=== PATIENT | female | born 1980 | race African-American/Black ===

== ENCOUNTER 2016-05-30 08:28 | Day surgery (SDC) | payer OTHER ==
[2016-05-26 15:19] VITALS: BMI 26.2
[2016-05-30 12:51] VITALS: TEMP 97.7
[2016-05-30 12:54] VITALS: BP 127/68; PULSE 72
--- NOTE | 2016-05-31 12:57 | PATH ---
Surgical Pathology Report Patient Name: JAVIER WAKEFIELD [facility]. Rec. #: [id number] /Age/Gender: 1980 (Age: 35) / F Account: [id number] Location: RADIOLOGY Taken: 05/30/2016 Received: 05/30/2016 Reported: 05/31/2016 Physicians: Chai Martinez M.D. Karthik Rayo M.D. Specimen(s) Received RIGHT SUPRACLAVICULAR LYMPH NODE BX Clinical History 35 year old female with enlarged right supraclavicular lymph nodes Rule out lymphoma versus metastases versus inflammatory/infection process Final Diagnosis LYMPH NODE, RIGHT SUPRACLAVICULAR, US GUIDED CORE BIOPSY: NON-NECROTIZING GRANULOMATOUS INFLAMMATION (SEE COMMENT). Comment: Non-necrotizing granulomas may be seen as a result of systemic granulomatous disease, such as sarcoid, infections and autoimmune diseases. Clinical and serological correlations are suggested. Special stains for acid-fast and fungal organisms are pending; results will be reported in an addendum. Electronically Signed Cal Tolliver M.D. Addendum Reported: 06/01/2016 Addendum Diagnosis No acid fast bacilli are identified with AFB stain. No fungal organisms are identified with GMS stain. Cal Tolliver M.D. Addendum Reported: 06/01/2016 Addendum Diagnosis FLOW CYTOMETRY PERFORMED AND INTERPRETED ON THE CONCURRENT SPECIMEN AT [place], [place] ([id number]) SHOWED THE FOLLOWING: INTERPRETATION: In the sample analyzed there is no detectable B or T-cell non-Hodgkin's lymphoma. Phenotype: There is a mixed, mature B and T lymphocytes populations. B cells (41% of total) are polytypic. The gerber cells (52% of total) show no [place] T-cell antigenic deletion. The touch imprint contains heterogeneous lymphoid population. Histiocytes are also identified. Cal Tolliver M.D. Gross Description Received in formalin, labeled "right lymph" are 2 albrecht, cylindrical portions of soft tissue averaging 1.6 cm in length and 0.1 cm in diameter. The specimens are submitted in toto in one cassette. There is additional tissue received in RPMI solution which is sent for flow cytometry. /05/30/201605/30/2016
== END 2016-05-30 12:45 | disposition home or self-care (01) ==
LOC: JRADIR 08:28
PROVIDERS: ATTEND Internal Medicine Hematology & Oncology
PROC: BW4FZZZ Ultrasonography of Neck (ICD-10-PCS; principal; 2016-05-30)
PROC: 07B13ZX Excision of Right Neck Lymphatic, Percutaneous Approach, Diagnostic (ICD-10-PCS; 2016-05-30)
DX: I88.8 Other nonspecific lymphadenitis (principal)
CPT/HCPCS: 76942-TC; 84703; 87899; 88305-TC; 88312-TC

== ENCOUNTER 2016-09-17 15:23 | Emergency (ER) | payer OTHER ==
[2016-09-17 15:29] VITALS: TEMP 98.1; BMI 26.6
--- NOTE | 2016-09-17 16:12 | PDOC ---
History of Present Illness - General History Source: Patient - History of Present Illness Timing/Duration: reports: intermittent <Louis Nolan - Last Filed: 09/17/16 18:51> <Maddi Guevara - Last Filed: 09/18/16 11:11> - General Chief Complaint: Pain Stated Complaint: 7 WKS PRG/ECTOPIC Time Seen by Provider: 09/17/16 15:56 Past History - Past Medical History Anemia: No Asthma: No Cancer: No Cardiac Disorders: No CVA: No COPD: No CHF: No Dementia: No Diabetes: No GI Disorders: No Disorders: No HTN: No Hypercholesterolemia: No Liver Disease: No Seizures: No Thyroid Disease: No - Surgical History Abdominal Surgery: No Appendectomy: No Cardiac Surgery: No Cholecystectomy: No Lung Surgery: No Neurologic Surgery: No Orthopedic Surgery: No - Psycho/Social/Smoking Cessation Hx Anxiety: No Suicidal Ideation: No Smoking Status: No Smoking History: Never smoked Have you smoked in the past 12 months: No Number of Cigarettes Smoked Daily: 0 Hx Alcohol Use: No Drug/Substance Use Hx: No Substance Use Type: None Hx Substance Use Treatment: No <Louis Nolan - Last Filed: 09/17/16 18:51> <Maddi Guevara - Last Filed: 09/18/16 11:11> - Past Medical History Allergies/Adverse Reactions: Allergies Allergy/AdvReac Type Severity Reaction Status Date / Time No Known Drug Allergies Allergy Verified 09/17/16 15:29 Home Medications: Ambulatory Orders Acetaminophen [Tylenol] 650 mg PO ASDIR PRN 08/18/16 Ferrous Sulfate 325 mg PO DAILY 08/18/16 Abd/GI Specific PMHX - Complaint Specific PMHX Colitis: No Diverticulitis: No Gall Bladder Disease: No GERD: No Hepatitis: No Irritable Bowel Synd (IBS): No Pancreatitis: No GI Ulcer Disease: No <Louis Nolan Last Filed: 09/17/16 18:51> Review of Systems - Review of Systems Constitutional: No: Chills, Fever ABD/GI: Yes: Abdominal cramping. No: Nausea, Vomiting : No: Dysuria <Louis Nolan Last Filed: 09/17/16 18:51> *Physical Exam - Vital Signs Last Vital Signs Temp Pulse Resp BP Pulse Ox 98.1 F 91 H 20 119/77 99 09/17/16 15:26 09/17/16 15:26 09/17/16 15:26 09/17/16 15:26 09/17/16 15:26 - Physical Exam General Appearance: Yes: Appropriately Dressed. No: Apparent Distress HEENT: positive: Normal Voice Neck: positive: Supple Respiratory/Chest: negative: Respiratory Distress Female Pelvic Exam: positive: normal external exam, discharge (small amount light yellow discharge). negative: normal adnexa, CMT, vaginal bleeding Gastrointestinal/Abdominal: positive: Tender (to R suprapubic area), Soft Extremity: positive: Normal Inspection Integumentary: positive: Dry, Warm Neurologic: positive: Fully Oriented, Alert, Normal Mood/Affect <Louis Nolan - Last Filed: 09/17/16 18:51> - Vital Signs Last Vital Signs Temp Pulse Resp BP Pulse Ox 98.1 F 80 18 120/77 99 09/17/16 15:26 09/17/16 17:30 09/17/16 17:30 09/17/16 17:30 09/17/16 17:30 <Maddi Guevara - Last Filed: 09/18/16 11:11> ED Treatment Course - LABORATORY CBC & Chemistry Diagram: 09/17/16 16:08 09/17/16 16:08 - RADIOLOGY Radiology Studies Ordered: Category Date Time Status TRANSVAGINAL ULTRASOUND US [US] Stat Ultrasound 09/17/16 15:57 Ordered <Louis Nolan - Last Filed: 09/17/16 18:51> - LABORATORY CBC & Chemistry Diagram: 09/17/16 16:08 09/17/16 16:08 - ADDITIONAL ORDERS Additional order review: 09/17/16 16:08 RBC 4.04 MCV 94.1 MCHC 33.3 RDW 14.8 MPV 7.8 Neutrophils % 65.6 Lymphocytes % 25.6 Monocytes % 7.3 Eosinophils % 1.0 Basophils % 0.5 <Maddi Guevara - Last Filed: 09/18/16 11:11> Medical Decision Making - Medical Decision Making 09/17/16 16:08 35 yo F, (6 elec ABs), ~7 weeks by dates, dx w/ R ectopic on US today at [facility] after presenting to facility for termination of current . States she has been having some vague pelvic pain x several weeks, no vag bleeding, n/v/f/c or dysuria See exam Ectopic on outside US today Stable w/ + R pelvic pain, no vag bleed -pre-op labs -US -wellness program manager c/s 09/17/16 16:25 09/17/16 18:52 Intrauterine ges sac w/ pole ~6 weeks w/ FHR in lower uterine segment and ?2nd adjacent pole per radiology, no yolk sac seen, +R ovarian cyst, no adnexal masses. Pt informed. States US done at [facility] was done by practitioner at bedside and was not an official US. Pt given copy of report and will f/u with her OB 09/17/16 18:57 <Louis Nolan - Last Filed: 09/17/16 18:51> *DC/Admit/Observation/Transfer <Louis Nolan - Last Filed: 09/17/16 18:51> - Attestations Physician Attestion: I reviewed the case with the mid-level practitioner and agree with the mid- level practitioner's assessment, diagnosis and disposition. <Maddi Guevara - Last Filed: 09/18/16 11:11> Diagnosis at time of Disposition: Abdominal pain affecting - Discharge Dispostion Disposition: HOME Condition at time of disposition: Good - Referrals Referrals: Dave Hager MD [Primary Care Provider] - - Patient Instructions Additional Instructions: Your beta was >65,000 today w/ an intrauterine on ultrasound today. There was no evidence of an ectopic and you were given a report of the ultrasound. Please continue to follow up with your OB
[2016-09-17 16:16] LABS: BASOPHIL 0.5 % (0-2.0); MCH 31.4 pg (25.7-33.7); MCHC 33.3 g/dl (32.0-36.0); MEAN CELL VOLUME 94.1 fl (80-96); MEAN PLT VOLUME 7.8 fl (7.5-11.1); NEUTROPHILS 65.6 % (42.8-82.8); PLATELET COUNT 269 K/MM3 (134-434); RDW 14.8 % (11.6-15.6); WHITE BLOOD COUNT 5.8 K/mm3 (4.0-10.0)
[2016-09-17 16:31] LABS: URINE APPEARANCE CLEAR; URINE BILIRUBIN NEGATIVE (NEGATIVE); URINE BLOOD NEGATIVE (NEGATIVE); URINE COLOR YELLOW; URINE GLUCOSE (UA) NEGATIVE (NEGATIVE); URINE KETONE 2+ (NEGATIVE); URINE LEUK ESTERASE NEGATIVE (NEGATIVE); URINE NITRITE NEGATIVE (NEGATIVE); URINE PROTEIN NEGATIVE (NEGATIVE); URINE UROBILINOGEN NEGATIVE E.U./dl (0.2-1.0)
[2016-09-17 16:35] LABS: INR 1.09 (0.82-1.09)
[2016-09-17 16:48] LABS: ALBUMIN 3.8 g/dl (3.4-5.0); ANION GAP 9 (8-16); BILIRUBIN,TOTAL 0.9 mg/dL (0.2-1.0); CO2 26 mmol/L (21-32); CREATININE 0.7 mg/dL (0.55-1.02); GLUCOSE,RANDOM 74 mg/dL (74-106); SGOT/AST 24 U/L (15-37); SGPT/ALT 28 U/L (12-78); TOT PROT 7.6 g/dl (6.4-8.2)
[2016-09-17 17:03] LABS: ALK PHOS 66 U/L (45-117)
[2016-09-17 18:22] VITALS: BP 120/77; PULSE 80
== END 2016-09-17 19:01 | disposition home or self-care (01) ==
LOC: JER 15:23
DX: O26.891 Other specified pregnancy related conditions, first trimester (principal); R10.84 Generalized abdominal pain; O34.81 Maternal care for other abnormalities of pelvic organs, first trimester; N83.201 Unspecified ovarian cyst, right side; Z3A.01 Less than 8 weeks gestation of pregnancy
CPT/HCPCS: 36415; 76830-TC; 80053; 81003; 84702; 85025; 85610; 86850; 86900; 86901; 99285-25

== ENCOUNTER 2016-10-07 08:10 | Inpatient (IN) | payer OTHER ==
[2016-09-23 10:51] VITALS: BMI 26.6
--- NOTE | 2016-10-07 07:50 | HP ---
Satellite [facility] - Chief Complaint Chief Complaint: left hip pain - Past Medical History Allergies/Adverse Reactions: Allergies Allergy/AdvReac Type Severity Reaction Status Date / Time No Known Drug Allergies Allergy Verified 09/23/16 10:51 ...LMP: 08/03/16 - Current Medications Current Medications: Home Medications Medication Instructions Recorded Acetaminophen [Tylenol] 650 mg PO ASDIR PRN 08/18/16 Ferrous Sulfate 325 mg PO DAILY 08/18/16 Satellite Physical Exam - Physical Examination General Appearance: Well Nourished, Well Developed, Alert & Oriented x3 ENT: Clear Lung: Normal air movement Heart: Regular rate & rhythm Extremities: Other (left hip- + ttp, decr rom, nvi xrays show severe hip djd) Neurological: Intact, Alert, Oriented Satellite Impression/Plan - Impression/Plan Impression: left hip djd Operative Procedure: left carmelina thr Date to be Performed: 10/07/16
[~2016-10-07 08:10] MED LIST: CEFAZOLIN 1 GM/D5W 50 ML IVPB ONE; CELECOXIB 200 MG CAPSULE PO ONE; GABAPENTIN 300 MG CAPSULE (FP) PO ONE; TRANEXAMIC ACID 1000 MG/10 ML VIAL IVPUSH ONE; oxyCODONE HCL 10 MG SUSTAINED ACTING TABLET PO ONE
[2016-10-07] MEDS ORDERED: ceFAZolin SODIUM 1 GM VIAL IVPB ONE ×2 (10:30)
[2016-10-07] MEDS ORDERED: VANCOMYCIN 1 GRAM (PRE-DOCKED) 1,000 MG/250 ML BAG IVPB ONE (10:55)
[2016-10-07] MEDS ORDERED: MAGNESIUM HYDROX 2400MG/30ML ORAL SUSPENSION 30 ML CUP PO PRN (12:20)
[2016-10-07] MEDS ORDERED: ONDANSETRON 4 MG/2 ML VIAL IVPB PRN (12:20)
[2016-10-07] MEDS ORDERED: MAG HYDROX/AL HYDROX/SIMETH 30 ML UNIT-DOSE CUP PO PRN (12:20)
--- NOTE | 2016-10-07 12:23 | OP ---
Operative Note - Note: Operative Date: 10/07/16 (helen) Pre-Operative Diagnosis: left hip djd Operation: left carmelina thr Post-Operative Diagnosis: Same as Pre-op Surgeon: Juan Lynn Quality Process Auditor: Rohan Gupta Anesthesia: Spinal, Local Specimens Removed: femoral head Estimated Blood Loss (mls): 200 Operative Report Dictated: Yes
--- NOTE | 2016-10-07 12:24 | SPEC ---
DATE OF OPERATION: 10/07/2016 PREOPERATIVE DIAGNOSIS: Degenerative Joint Disease, Left Hip POSTOPERATIVE DIAGNOSIS: Degenerative Joint disease, Left Hip PROCEDURE: Left Total Hip Replacement with Robotic Arm Navigation Assistance (MAKOplasty). SURGEON: Dr. Juan Lynn. TOBACCO ACREAGE MEASURER: BRIELLE Trevino. ANESTHESIA: Spinal and regional. ANESTHESIOLOGIST: CLOSURE: [place] components with a No. 5 Accolade 2 stem, 0 ceramic 36-mm head, 48 PSL Press-Fit acetabulum, No. 1 Vicryl for capsule and fascia, 0 and 2-0 subcutaneous, 3-0 Monocryl subcuticular and skin glue for skin, 4-0 undyed Vicryl for pin sites. ESTIMATED BLOOD LOSS: Approximately 250 mL. COMPLICATIONS: None. CONDITION: To recovery room in stable condition. DESCRIPTION OF OPERATIVE PROCEDURE: The patient was taken to the operating room. Spinal anesthesia as well as sciatic block was administered by the anesthesiologist. The IV Kefzol and TXA were administered prophylactically prior to the case. The patient was placed in the lateral decubitus position with all prominences well-padded. An EKG pad was secured to the inferior pole of the patella for limb length calculations intraoperatively. The left hip area was prepped and draped in the usual sterile fashion. A 12.0-15.0 cm curved longitudinal incision over the posterolateral aspect of the greater trochanter was made. Hemostasis was achieved with Bovie cautery. Sharp dissection was carried down to the level of the fascia. The fascia was opened the entire length of the incision, spreading the gluteus viola fibers in the direction of their origin. A Charnley retractor was placed in this layer, and care was taken to be far away from the sciatic nerve. The short external rotators were detached off the insertion of the greater trochanter and peeled off the capsule. A posterior capsulectomy was then performed. A checkpoint was malleted into the greater trochanter. Three small stab incisions were done on the iliac crest. Through these stab incisions, threaded guide pins were drilled into the iliac crest. These pins were fastened to the Navigation array. The check point on the greater trochanter, and the EKG pad on the inferior pole of the patella were used to measure preoperative limb length and offset. The hip was then dislocated. The hip was osteotomized at the appropriate level as directed by the preoperative template. Anterior and posterior retractors were placed around the acetabulum. Circumferential labrum was excised. A checkpoint was malleted into the acetabulum superiorly. The acetabulum was then registered with the Navigation device with multiple sites within the acetabulum and around the rim of the acetabulum. I t was then confirmed popping the blue bubbles, confirming ideal position and confirmation of adequate registration with the Navigation device. Using a 48 reamer, which was decided preoperatively on the preoperative template, the robotic arm was brought into the field and was used to ream the acetabulum down to the appropriate depth with the appropriate orientation and inversion applied. After reaming, a good hemispherical bleeding surface was encountered in the acetabulum. A [place] shell of the appropriate size was then malleted into place achieving excellent fit. Confirmation of the appropriate orientation and inversion was confirmed using the probe, and assuring that the acetabular cup was placed in the ideal position as templated preoperatively. A real liner was then clipped into place with a 10 degree lip in the posterior-superior quadrant. Anterior and posterior osteophytes were removed using osteotome. Next, our attention was directed to the femur. The proximal femur was opened with a box chisel, rat-tail, anchovy and serial reamers. This was done until the appropriate reamer achieved good fit and fill of the proximal femur. A trial reduction with the appropriate neck and head, as again measured from our preoperative template, was performed. Limb lengths were confirmed both visually and using the Navigation device, again measuring the inferior pole of the patella and the checkpoint of the greater trochanter. This confirmed ideal position of the femoral component, lengths and offset. The trial components were removed. The real component was malleted into place. The head was cold-welded to the Charnley and the hip was reduced. Again, the hip was found to have equal limb lengths as described previously. The hip was also taken through a range of motion and found to be stable in external rotation and extension, was stable in marked flexion, stable in adduction and internal rotation, and had a positive hang test and negative telescoping. The hip was irrigated with copious amounts of irrigation. Hemostasis was achieved. Vancomycin powder was sprinkled into the joint. A second dose of TXA was administered. The fascia was closed with No. 1 Vicryl interrupted suture, 0 and 2-0 for subcutaneous, and 3-0 Monocryl subcuticular for skin with skin glue. This was followed by an Aquacel dressing. The patient was flipped into the supine position. Bilateral SCDs and an abduction pillow were applied. X-rays showed good position of the components. The patient was awakened from anesthesia and transferred to the recovery room in stable condition. COMPLICATIONS: None. Nereida NOGUEIRA/[id number]
[2016-10-07 12:27] LABS: HIV 1 & 2 AB NEGATIVE; HIV 1 AGp24 NEGATIVE
[2016-10-07] MEDS ORDERED: LACTATED RINGERS SOLUTION 1,000 ML IV SCH (12:30)
[2016-10-07] MEDS ORDERED: oxyCODONE HCL 5 MG TABLET PO PRN (12:35)
[2016-10-07] MEDS: ACETAMINOPHEN 325 MG TABLET (FP) PO SCH (13:40)
[2016-10-07] MEDS: oxyCODONE HCL 5 MG TABLET PO PRN ×3 (14:00→20:22)
[2016-10-07] MEDS: CEFAZOLIN 2 GM/D5W 50 ML IVPB SCH (18:35)
[2016-10-07] MEDS: oxyCODONE HCL 10 MG SUSTAINED ACTING TABLET PO SCH (21:31)
[2016-10-07] MEDS: SENNOSIDES/DOCUSATE COMBO (SENNA PLUS) TABLET (UD) PO SCH (21:31)
[2016-10-07] MEDS: GABAPENTIN 300 MG CAPSULE (FP) PO SCH (21:32)
[2016-10-08] MEDS: ACETAMINOPHEN 325 MG TABLET (FP) PO SCH ×5 (00:08→23:23)
[2016-10-08] MEDS: oxyCODONE HCL 5 MG TABLET PO PRN ×7 (00:08→21:32)
[2016-10-08] MEDS: CEFAZOLIN 2 GM/D5W 50 ML IVPB SCH (01:58)
[2016-10-08 07:58] LABS: MCH 32.7 pg (25.7-33.7); MCHC 33.9 g/dl (32.0-36.0); MEAN CELL VOLUME 96.5 fl (80-96); MEAN PLT VOLUME 7.6 fl (7.5-11.1); PLATELET COUNT 230 K/MM3 (134-434); RDW 14.6 % (11.6-15.6); WHITE BLOOD COUNT 7.6 K/mm3 (4.0-10.8)
[2016-10-08] MEDS: LACTATED RINGERS SOLUTION 1,000 ML IV SCH ×2 (08:03→13:56)
[2016-10-08] MEDS: ASPIRIN 325 MG TABLET PO SCH (08:05)
[2016-10-08] MEDS: FERROUS SO4 325 MG TABLET (FP) PO SCH (09:24)
[2016-10-08] MEDS: oxyCODONE HCL 10 MG SUSTAINED ACTING TABLET PO SCH ×2 (09:24→21:32)
[2016-10-08] MEDS: GABAPENTIN 300 MG CAPSULE (FP) PO SCH ×2 (09:24→21:32)
[2016-10-08] MEDS: PANTOPRAZOLE 40 MG TABLET (FP) PO SCH (09:24)
[2016-10-08] MEDS: MULTIVITAMINS (DAILY MVI) TABLET (FP) PO SCH (09:24)
[2016-10-08] MEDS: SENNOSIDES/DOCUSATE COMBO (SENNA PLUS) TABLET (UD) PO SCH ×2 (09:24→21:32)
--- NOTE | 2016-10-08 13:34 | PN ---
Progress Note (short form) - Note Progress Note: Ortho Pt seen and examined s/p left carmelina thr pod #1 Selected Entries 10/08/16 05:00 Temperature 98.8 F Pulse Rate 88 Respiratory 18 Rate Blood Pressure 107/52 Laboratory Tests 10/08/16 07:48 WBC 7.6 Hgb 9.9 L Hct 29.2 L Plt Count 230 dressing c/d/i, calf soft, nt nvi a/p PT hip precautions dvt ppx pain control d/c home tomorrow if stable
[2016-10-09] MEDS: oxyCODONE HCL 5 MG TABLET PO PRN ×3 (01:46→10:20)
[2016-10-09] MEDS: ACETAMINOPHEN 325 MG TABLET (FP) PO SCH (06:28)
[2016-10-09 06:32] VITALS: BP 136/61; PULSE 113; TEMP 99.2
--- NOTE | 2016-10-09 07:17 | PN ---
Progress Note (short form) - Note Progress Note: Ortho Pt seen and examined s/p left carmelina thr pod #2 Selected Entries 10/09/16 06:00 Temperature 99.2 F Pulse Rate 113 H Respiratory 18 Rate Blood Pressure 136/61 Laboratory Tests 10/08/16 07:48 WBC 7.6 Hgb 9.9 L Hct 29.2 L Plt Count 230 dressing c/d/i, calf soft, nt nvi a/p PT hip precautions dvt ppx pain control d/c home today f/u in the office in 1 week
--- NOTE | 2016-10-09 07:18 | DS ---
Physical Examination Vital Signs: Vital Signs Temperature 99.2 F 10/09/16 06:00 Pulse Rate 113 H 10/09/16 06:00 Respiratory Rate 18 10/09/16 06:00 Blood Pressure 136/61 10/09/16 06:00 O2 Sat by Pulse Oximetry (%) 97 10/09/16 06:00 Labs: CBC, BMP 10/08/16 07:48 Discharge Summary Reason For Visit: OSTEOARTHRITIS Procedures: Principal: s/p left carmelina thr Hospital Course: admitted for elective left carmelina thr, uneventful post-op, stable for d/c Condition: Good - Instructions Diet, Activity, Other Instructions: Post-op Instructions-Total Hip Replacement Call the office for a follow-up appointment in 1 week - [phone] Aspirin 325mg daily for 6 weeks. Pain medication was sent into your pharmacy. Apply Graduated Compression Stockings (TEDs) to both lower extremities- remove daily for hygiene ONLY Apply Sequential Compression Device (SCDs) to both Lower extremities remove for PT and hygiene ONLY Apply cold packs to affected area for 15 minutes every 2 hours. Physical Therapist will come to your home for the first 5 days. You will be set up with outpatient PT at your first post-operative visit. Patient may ambulate as tolerated-encourage self care (at least every 2-3 hours while awake) with walker or cane Maintain Aquacel (waterproof) dressing to operative wound (will be removed by surgeon at first office visit) Shower with Aquacel dressing in place-if Aquacel integrity compromised, remove and apply dry sterile dressing and notify Orthopedist. DO NOT SHOWER unless Orthopedists approves without Aquacel dressing CONTACT THE OFFICE FOR ANY CHANGE IN YOUR CONDITION (for example-fever greater than 102 degrees,excessive bleeding from operative site, purulent drainage, severe swelling or pain) GO TO THE EMERGENCY ROOM IF THERE IS A MEDICAL EMERGENCY Hip Precautions: * Keep a rolled towel under affected heel while in bed or chair (to keep knee in extension) * Dependent upon approach: * Posterior - do not cross legs; do not sit on low chairs or toilets. * If you have any questions, please do not hesitate to call the office - . Referrals: Juan Lynn MD [Staff Physician] - Disposition: VNS/HOME HEALTH CARE - Home Medications Comprehensive Discharge Medication List: Ambulatory Orders Acetaminophen [Tylenol] 650 mg PO ASDIR PRN 08/18/16 Ferrous Sulfate 325 mg PO DAILY 08/18/16 Aspirin [ASA -] 325 mg PO DAILY@0800 tablet 10/07/16 Oxycodone HCl/Acetaminophen [Percocet 5-325 mg Tablet -] 1 - 2 tab PO Q6H #50 tab MDD 8 10/07/16
[2016-10-09] MEDS: ASPIRIN 325 MG TABLET PO SCH (08:12)
[2016-10-09] MEDS: GABAPENTIN 300 MG CAPSULE (FP) PO SCH (09:10)
[2016-10-09] MEDS: MULTIVITAMINS (DAILY MVI) TABLET (FP) PO SCH (09:10)
[2016-10-09] MEDS: oxyCODONE HCL 10 MG SUSTAINED ACTING TABLET PO SCH (09:10)
[2016-10-09] MEDS: FERROUS SO4 325 MG TABLET (FP) PO SCH (09:10)
[2016-10-09] MEDS: SENNOSIDES/DOCUSATE COMBO (SENNA PLUS) TABLET (UD) PO SCH (09:10)
[2016-10-09] MEDS: PANTOPRAZOLE 40 MG TABLET (FP) PO SCH (09:10)
--- NOTE | 2016-10-11 14:17 | PATH ---
Surgical Pathology Report Patient Name: JAVIER WAKEFIELD Med. Rec. #: [id number] /Age/Gender: 1980 (Age: 35) / F Account: [id number] Location: [facility] MED-SURG Taken: 10/07/2016 Received: 10/07/2016 Reported: 10/11/2016 Physicians: Juan Lynn M.D. Specimen(s) Received LEFT FEMUR HEAD Clinical History Left hip osteoarthritis Final Diagnosis BONE, LEFT FEMORAL HEAD, REPLACEMENT: DEGENERATIVE JOINT DISEASE. Electronically Signed Michael Biswas M.D. Gross Description Received in formalin, labeled "left femoral head," is a 4.1 x 4.1 x 3.8 cm. femoral head with a 0.8 cm in length portion of femoral neck attached. The margin of resection is smooth. No areas of eburnation are identified. The articular surface is albrecht-yellow and diffusely granular. The underlying trabecular bone is yellow and hard. A advertising account representative section is submitted in one cassette, following decalcification. /10/10/201610/10/2016
== END 2016-10-09 12:28 | disposition home health service (06) | DRG 301 ==
LOC: FM/S 08:10
PROVIDERS: ADMIT Orthopaedic Surgery; ATTEND Orthopaedic Surgery
PROC: 8E0Y0CZ Robotic Assisted Procedure of Lower Extremity, Open Approach (ICD-10-PCS; 2016-10-07)
PROC: 0SRB04A Replacement of Left Hip Joint with Ceramic on Polyethylene Synthetic Substitute, Uncemented, Open Approach (ICD-10-PCS; principal; 2016-10-07 10:52)
DX: M16.12 Unilateral primary osteoarthritis, left hip (principal)
CPT/HCPCS: 36415; 73502-TC-LT; 84703; 85027; 87389; 88304-TC; 88311-TC; 94760; 97110-GP; 97116-GP; 97161-GP

== ENCOUNTER 2016-11-23 16:20 | Emergency (ER) | payer OTHER ==
[2016-11-23 16:28] VITALS: BMI 26.6
--- NOTE | 2016-11-23 18:37 | PDOC ---
History of Present Illness - History of Present Illness Initial Comments: 36 year old female with PMH of recent ectopic 3 months ago (s/p one week of methotrexate therapy) [id number] presenting with one week of muscle cramps, headaches, night sweats, and chills. She states that these symptoms started suddenly without sick contact, out of the country travel, travel to the [facility], woodland exposure, water exposure, or any other exposures. She lives at home with her boyfriend and daughter who are both healthy and have not traveled out of the country or to the [facility]. She tried Tylenol and Motrin for her symptoms without relief. She also had an episode of severe weakness where she fell to the floor but was able to brace her fall and lay down yesterday. She suffered this episode directly after getting up from the toilet and taking a few steps. She did not hit her head, arms, or lose consciousness. 11/23/16 18:59 <Radha Kingston - Last Filed: 11/23/16 21:36> <Berto Pratt - Last Filed: 11/24/16 01:00> - General Chief Complaint: Lightheaded Stated Complaint: HEADACHE, FATIGUE Time Seen by Provider: 11/23/16 18:36 Past History - Past Medical History Anemia: No Asthma: No Cancer: No Cardiac Disorders: No CVA: No COPD: No CHF: No Dementia: No Diabetes: No GI Disorders: No Disorders: No HTN: No Hypercholesterolemia: No Liver Disease: No Seizures: No Thyroid Disease: No - Surgical History Abdominal Surgery: No Appendectomy: No Cardiac Surgery: No Cholecystectomy: No Lung Surgery: No Neurologic Surgery: No Orthopedic Surgery: No - Reproductive History (#): 9 Para: 2 Ectopic : Yes (possibly at current) Therapeutic (s) & number: Yes (6) Spontaneous : 0 - Psycho/Social/Smoking Cessation Hx Anxiety: No Suicidal Ideation: No Smoking Status: No Smoking History: Never smoked Have you smoked in the past 12 months: No Number of Cigarettes Smoked Daily: 0 Information on smoking cessation initiated: No Hx Alcohol Use: Yes (SOCIAL) Drug/Substance Use Hx: No Substance Use Type: None Hx Substance Use Treatment: No <Radha Kingston - Last Filed: 11/23/16 21:36> <Berto Pratt - Last Filed: 11/24/16 01:00> - Past Medical History Allergies/Adverse Reactions: Allergies Allergy/AdvReac Type Severity Reaction Status Date / Time No Known Drug Allergies Allergy Verified 11/23/16 16:28 Home Medications: Ambulatory Orders Cephalexin [Keflex] 500 mg PO BID #14 capsule 11/24/16 Review of Systems - Review of Systems Constitutional: Yes: See HPI, Chills, Loss of Appetite, Night Sweats, Weakness. No: Diaphoresis HEENTM: No: Blurred Vision, Recent change in vision Respiratory: No: Cough, Shortness of Breath Cardiac (ROS): No: Chest Pain, Edema <Radha Kingston - Last Filed: 11/23/16 21:36> *Physical Exam - Vital Signs Last Vital Signs Temp Pulse Resp BP Pulse Ox 99.3 F 123 H 20 108/69 100 11/23/16 16:25 11/23/16 16:25 11/23/16 16:25 11/23/16 16:25 11/23/16 16:25 - Physical Exam General Appearance: Yes: Nourished, Appropriately Dressed. No: Apparent Distress HEENT: positive: EOMI, NANY, Normal ENT Inspection, Normal Voice, Other (moist mucous membranes) Neck: positive: Trachea midline, Normal Thyroid, Supple. negative: Tender, Rigid Respiratory/Chest: positive: Lungs Clear, Normal Breath Sounds. negative: Chest Tender, Respiratory Distress, Accessory Muscle Use Cardiovascular: positive: Regular Rhythm, Regular Rate, S1, S2. negative: Edema , Murmur Gastrointestinal/Abdominal: positive: Normal Bowel Sounds, Flat, Soft. negative : Tender, Organomegaly Musculoskeletal: positive: Normal Inspection Integumentary: positive: Normal Color, Dry, Warm Neurologic: positive: Fully Oriented, Alert, Normal Mood/Affect, Normal Response <Radha Kingston - Last Filed: 11/23/16 21:36> - Vital Signs Last Vital Signs Temp Pulse Resp BP Pulse Ox 98.2 F 74 20 114/73 100 11/23/16 20:25 11/23/16 21:59 11/23/16 16:25 11/23/16 21:59 11/23/16 16:25 <Berto Pratt - Last Filed: 11/24/16 01:00> ED Treatment Course - LABORATORY CBC & Chemistry Diagram: 11/23/16 19:20 11/23/16 19:20 <Radha Kingston - Last Filed: 11/23/16 21:36> - LABORATORY CBC & Chemistry Diagram: 11/23/16 19:20 11/23/16 19:20 - ADDITIONAL ORDERS Additional order review: Laboratory Results 11/23/16 11/23/16 20:25 19:20 Sodium 136 Potassium 3.3 L Chloride 98 Carbon Dioxide 27 Anion Gap 11 BUN 6 L D Creatinine 0.8 Creat Clearance w eGFR > 60 Random Glucose 92 D Calcium 8.9 Phosphorus 3.7 Magnesium 2.1 Total Bilirubin 0.8 AST 13 L D ALT 21 D Alkaline Phosphatase 79 Total Protein 6.9 Albumin 3.0 L D Beta HCG, Quant 360.5 Urine Color Yellow Urine Appearance Slcloudy Urine pH 6.0 Ur Specific [place] <= 1.005 Urine Protein Negative Urine Glucose (UA) Negative Urine Ketones 1+ H Urine Blood 2+ H Urine Nitrite Positive Urine Bilirubin Negative Urine Urobilinogen Negative Ur Leukocyte Esterase 2+ H Urine RBC 2 Urine WBC 24 Ur Epithelial Cells Rare Urine Bacteria Many Urine Mucus Few 11/23/16 21:30 Influenza Types A,B Antigen (JELANI) - Final Nasopharyngeal Swab - Final 11/23/16 19:20 RBC 3.46 L MCV 91.1 MCHC 33.5 RDW 15.1 MPV 8.1 - Medications Given in the ED: ED Medications Discontinued Medications Generic Name Dose Route Start Last Admin Trade Name Freq PRN Reason Stop Dose Admin Ceftriaxone Sodium 1 gm/ 100 mls @ 200 mls/hr 11/23/16 21:30 11/23/16 21:59 Dextrose IVPB 11/23/16 21:59 200 mls/hr ONCE ONE Administration Sodium Chloride 1,000 mls @ 1,000 mls/hr 11/23/16 21:48 11/23/16 21:59 Normal Saline - IV 11/23/16 22:47 1,000 mls/hr ASDIR STA Administration <Berto Pratt - Last Filed: 11/24/16 01:00> Medical Decision Making - Medical Decision Making 36 year old female with flu like symptoms for one week, 2 months s/p chemical ectopic treatment for 7 days. [facility] returned at 360 so unsure if this is continued ectopic vs. retained products or new IUP. She last had sex with barrier methods on October 06. Her LMP was November 15. Urine leuk esterase positive so given 1 gm ceftriaxone. CBC and CMP roughly WNL with the exception of hypokalemia to 3.3. Orthostatics, transvaginal US, and 1L normal saline pending. Patient signed ot to Dr. Pratt at 21:58 in stabel condition. 11/23/16 21:51 <Radha Kingston - Last Filed: 11/23/16 21:36> *DC/Admit/Observation/Transfer - Attestations Physician Attestion: Attested by Dr. Kingston. 11/23/16 21:58 <Radha Kingston - Last Filed: 11/23/16 21:36> <Berto Pratt - Last Filed: 11/24/16 01:00> Diagnosis at time of Disposition: Elevated serum hCG, Weakness UTI (urinary tract infection) Qualifiers: Urinary tract infection type: acute cystitis Hematuria presence: with hematuria Qualified Code(s): N30.01 - Acute cystitis with hematuria - Discharge Dispostion Disposition: HOME Condition at time of disposition: Stable - Referrals Referrals: Dave Hager MD [Primary Care Provider] - - Patient Instructions Printed Discharge Instructions: DI for Urinary Tract Infection (UTI)
[2016-11-23 19:26] LABS: MCH 30.5 pg (25.7-33.7); MCHC 33.5 g/dl (32.0-36.0); MEAN CELL VOLUME 91.1 fl (80-96); MEAN PLT VOLUME 8.1 fl (7.5-11.1); PLATELET COUNT 327 K/MM3 (134-434); RDW 15.1 % (11.6-15.6); WHITE BLOOD COUNT 7.4 K/mm3 (4.0-10.0)
[2016-11-23 20:26] VITALS: TEMP 98.2
[2016-11-23 20:32] LABS: URINE APPEARANCE SLCLOUDY; URINE BILIRUBIN NEGATIVE (NEGATIVE); URINE BLOOD 2+ (NEGATIVE); URINE COLOR YELLOW; URINE GLUCOSE (UA) NEGATIVE (NEGATIVE); URINE KETONE 1+ (NEGATIVE); URINE NITRITE POSITIVE (NEGATIVE); URINE PROTEIN NEGATIVE (NEGATIVE); URINE UROBILINOGEN NEGATIVE mg/dL (0.2-1.0)
[2016-11-23 20:39] LABS: ANION GAP 11 (8-16); BILIRUBIN,TOTAL 0.8 mg/dL (0.2-1.0); CALCIUM 8.9 mg/dL (8.5-10.1); CO2 27 mmol/L (21-32); CREATININE 0.8 mg/dL (0.55-1.02); GLUCOSE,RANDOM 92 mg/dL (74-106); MAGNESIUM 2.1 mg/dL (1.8-2.4); PHOSPHOROUS 3.7 mg/dL (2.5-4.9); SGOT/AST 13 U/L (15-37); SGPT/ALT 21 U/L (12-78); TOT PROT 6.9 g/dl (6.4-8.2)
[2016-11-23 20:43] LABS: ALK PHOS 79 U/L (45-117)
[2016-11-23 20:53] LABS: URINE LEUK ESTERASE 2+ (NEGATIVE)
[2016-11-23 20:56] LABS: URINE BACTERIA MANY /hpf (NONE SEEN); URINE MUCUS FEW; URINE RBC 2 /hpf (0-3); URINE WBC 24 /hpf (3-5)
[2016-11-23] MEDS ORDERED: CEFTRIAXONE 1 GM in DEXTROSE 5%-WATER - 100 ML IVPB ONE (21:30)
[2016-11-23] MEDS ORDERED: SODIUM CHLORIDE 1,000 ML IV STA (21:48)
[2016-11-23] MEDS ORDERED: cefTRIAXone SODIUM 1 GM VIAL ONE (21:52)
[2016-11-23 22:00] VITALS: BP 114/73; PULSE 74
--- NOTE | 2016-11-24 00:54 | PDOC ---
Attending Attestation - Resident Resident Name: Radha Kingston - ED Attending Attestation I have performed the following: I have examined & evaluated the patient, The case was reviewed & discussed with the resident, I agree w/resident's findings & plan, Exceptions are as noted - HPI HPI: 11/24/16 00:53 36-year-old female who was diagnosed with an IUP within the scar [facility] in September 2016 and was initiated on methotrexate presents to the ER with flulike symptoms for the past week with mild headache, myalgias, generalized weakness, malaise, and low-grade fever. Patient denies history travel or sick contacts. Patient is currently being evaluated by obstetrics clinic at [facility] for retained products of conception related to her previous . Patient reports that one week prior to presentation her beta-hCG was noted to be 500. - Physicial Exam PE: 11/24/16 00:55 In the ER, on initial evaluation, patient was noted to be afebrile mildly tachycardic with a normal blood pressure. Physical exam revealed no evidence of meningismus, clear lungs, no evidence of tachycardia, serial abdominal exams revealed no focal tenderness, there is no evidence petechial rash and neurological exam was noted to be nonfocal. - Medical Decision Making 11/24/16 00:56 Patient is a well-appearing 36-year-old female who presented with flulike symptoms. CBC is noted to be without evidence of leukocytosis with mild anemia. CMP revealed beta hCG 360. Urinalysis is noted for nitrite positive pyuria. Transvaginal ultrasound revealed fluid with vascular flow within the lower uterine segment likely representing retained products with clots. No evidence of ectopic was identified. Patient received IV ceftriaxone will be discharged with by mouth Keflex with outpatient follow-up in the obstetrical clinic as scheduled. Patient is able tolerate by mouth and is currently pain- free.
--- NOTE | 2016-11-24 10:53 | EKG ---
Test Reason : Blood Pressure : / mmHG Vent. Rate : 085 BPM Atrial Rate : 085 BPM P-R Int : 182 ms QRS Dur : 078 ms QT Int : 376 ms P-R-T Axes : 079 049 060 degrees QTc Int : 447 ms NORMAL SINUS RHYTHM NORMAL ECG NO PREVIOUS ECGS AVAILABLE Confirmed by TONO LOPES MD ([id number]) on 11/24/2016 10:52:51 AM Referred By: Confirmed By:TONO LOPES MD
--- NOTE | 2016-11-26 11:32 | PDOC ---
Patient Follow-up (Call Back) - Post ED Follow - Up Chief Complaint: Urinary Problem Condition at time of discharge: Stable Disposition at time of original discharge: HOME Reason for Call Back: Abnwl. Microbiology (carbenimase resist organism in urine culture) Signs/Symptoms Improved: Yes - Disposition Rx Needed: No (pt on sensitive antibiotic keflex)
== END 2016-11-24 01:08 | disposition home or self-care (01) ==
LOC: JER 16:20
PROC: 3E0337Z Introduction of Electrolytic and Water Balance Substance into Peripheral Vein, Percutaneous Approach (ICD-10-PCS; principal; 2016-11-23)
PROC: 3E03329 Introduction of Other Anti-infective into Peripheral Vein, Percutaneous Approach (ICD-10-PCS; 2016-11-23)
DX: N30.01 Acute cystitis with hematuria (principal); R78.89 Finding of other specified substances, not normally found in blood
CPT/HCPCS: 36415; 76817-TC; 80053; 81003; 81015; 83735; 84100; 84702; 85027; 87086; 87186; 87804; 93005; 93010; 99284-25

== ENCOUNTER 2017-04-05 21:18 | Emergency (ER) | payer OTHER ==
[2017-04-05 22:09] VITALS: BP 128/81; PULSE 99; TEMP 98.5; BMI 25.1
[2017-04-06] MEDS ORDERED: KETOROLAC TROMETHAMINE 30 MG/1 ML VIAL IM ONE (01:07)
--- NOTE | 2017-04-06 01:08 | PDOC ---
History of Present Illness - General Chief Complaint: Pain, Acute Stated Complaint: PAIN Time Seen by Provider: 04/06/17 00:50 History Source: Patient Exam Limitations: No Limitations - History of Present Illness Initial Comments: 04/06/17 01:48 36F with pmh of osteoarthritis s/p right hip replacement presents with b/l knee pain for the past month exacerbated the past few days 10/10 radiating up her thighs. . Last saw Dr. Lynn a few weeks ago who did Xrays of the knees and confirmed osteoarthritis. Gave her prescription for Naproxen but pain is nor unbearable. Past History - Past Medical History Allergies/Adverse Reactions: Allergies Allergy/AdvReac Type Severity Reaction Status Date / Time No Known Drug Allergies Allergy Verified 04/06/17 01:22 Home Medications: Ambulatory Orders NK [No Known Home Medication] 04/06/17 Anemia: No Asthma: No Cancer: No Cardiac Disorders: No CVA: No COPD: No CHF: No Dementia: No Diabetes: No GI Disorders: No Disorders: No HTN: No Hypercholesterolemia: No Liver Disease: No Seizures: No Thyroid Disease: No - Surgical History Abdominal Surgery: No Appendectomy: No Cardiac Surgery: No Cholecystectomy: No Lung Surgery: No Neurologic Surgery: No Orthopedic Surgery: No - Reproductive History (#): 9 Para: 2 Ectopic : Yes (possibly at current) Therapeutic (s) & number: Yes (6) Spontaneous : 0 - Suicide/Smoking/Psychosocial Hx Smoking Status: No Smoking History: Never smoked Have you smoked in the past 12 months: No Number of Cigarettes Smoked Daily: 0 Information on smoking cessation initiated: No Hx Alcohol Use: No Drug/Substance Use Hx: No Substance Use Type: None Hx Substance Use Treatment: No Review of Systems - Review of Systems Able to Perform ROS?: Yes Is the patient limited Turkmen proficient: No Constitutional: No: Symptoms Reported HEENTM: No: Symptoms Reported Respiratory: No: Symptoms reported Cardiac (ROS): No: Symptoms Reported ABD/GI: No: Symptoms Reported : No: Symptoms Reported Musculoskeletal: Yes: See HPI Integumentary: No: Symptoms Reported Neurological: No: Symptoms reported All Other Systems: Reviewed and Negative *Physical Exam - Vital Signs Last Vital Signs Temp Pulse Resp BP Pulse Ox 98.5 F 99 H 20 128/81 99 04/05/17 22:07 04/05/17 22:07 01/03/18 22:07 04/05/17 22:07 04/05/17 22:07 - Physical Exam General Appearance: Yes: Nourished, Appropriately Dressed, Apparent Distress HEENT: positive: EOMI, NANY, Normal ENT Inspection, Normal Voice Neck: negative: Tender Respiratory/Chest: positive: Chest Tender, Lungs Clear, Normal Breath Sounds Cardiovascular: positive: Regular Rhythm, Regular Rate, S1, S2 Vascular Pulses: Dorsalis-Pedis (R): 2+, Doralis-Pedis (L): 2+ Gastrointestinal/Abdominal: positive: Normal Bowel Sounds, Flat, Soft. negative : Tender Musculoskeletal: positive: Normal Inspection Extremity: positive: Normal Capillary Refill, Normal Range of Motion. negative : Pedal Edema Integumentary: positive: Normal Color, Dry, Warm Medical Decision Making - Medical Decision Making 04/06/17 02:03 Patient given toradol for pain Ultimately will need to schedule appointment with Dr. Lynn this week for outpatient MRI/pain management *DC/Admit/Observation/Transfer Diagnosis at time of Disposition: Osteoarthritis of both knees - Discharge Dispostion Disposition: HOME Admit: No - Referrals Referrals: Dave Hager MD [Primary Care Provider] - Juan Lynn MD [Staff Physician] - - Patient Instructions Printed Discharge Instructions: Dietary Supplements For Osteoarthritis, DI for Osteoarthritis, Diclofenac Topical (osteoarthritis pain), Certain Exercises May Help People with Knee Osteoarthritis - Post Discharge Activity Forms/Work/School Notes: Back to Work
[2017-04-06] MEDS ORDERED: KETOROLAC TROMETHAMINE 30 MG/1 ML VIAL ONE (01:16)
--- NOTE | 2017-04-06 01:19 | PDOC ---
Attending Attestation - HPI HPI: 04/06/17 01:25 The patient is a 36 yo with a significant past medical history of osteoarthritis s/p left THR who presents with a weeks of increased bilateral knee pain. She states she has been taking naproxen for pain with little to no relief. She reports the pain is intermittent, however, more frequent and severe this week. She reports the pain radiates from her bilateral knees to her thighs. She denies numbness, tingling, or swelling. Ortho: Dr. Lynn _ Documentation prepared by Evelin Garcia, acting as medical cash poster for Real Lou DO <Evelin Garcia - Last Filed: 04/06/17 01:25> - Resident Resident Name: Art Khalil - ED Attending Attestation I have performed the following: I have examined & evaluated the patient, The case was reviewed & discussed with the resident, I agree w/resident's findings & plan, Exceptions are as noted - Physicial Exam PE: 04/06/17 01:50 Physical Exam General Appearance: Yes: Appropriately Dressed. No: Apparent Distress, Intoxicated HEENT: positive: EOMI, NANY, Normal ENT Inspection, Normal Voice, TMs Normal, Pharynx Normal. negative: Pale Conjunctivae, Photophobia, Scleral Icterus (R), Scleral Icterus (L) Neck: positive: Trachea midline, Normal Thyroid, Supple. negative: Tender, Rigid, Carotid bruit, Stridor, Lymphadenopathy (R), Lymphadenopathy (L), Thyromegaly Respiratory/Chest: positive: Lungs Clear, Normal Breath Sounds. negative: Chest Tender, Respiratory Distress, Accessory Muscle Use, Labored Respiration, RES, Crackles, Rales, Rhonchi, Stridor, Wheezing, Dullness Cardiovascular: positive: Regular Rhythm, Regular Rate, S1, S2. negative: Edema , JVD, Murmur, Bradycardia, Tachycardia Vascular Pulses: Dorsalis-Pedis (R): 2+, Doralis-Pedis (L): 2+ Gastrointestinal/Abdominal: positive: Normal Bowel Sounds, Flat, Soft. negative : Tender, Organomegaly, Pulsatile Mass, Increased Bowel Sounds, Decreased BS, Distended, Guarding, Rebound, Hernia, Hepatomegaly, Spleenomegaly Lymphatic: negative: Adenopathy, Tenderness Musculoskeletal: positive: Normal Inspection. negative: CVA Tenderness, Decreased Range of Motion Extremity: positive: Normal Capillary Refill, Normal Inspection, Normal Range of Motion, Pelvis Stable. negative: Tender, Pedal Edema, Swelling, Erythema Integumentary: positive: Normal Color, Dry, Warm. negative: Cyanotic, Erythema , Jaundice, Rash Neurologic: positive: paper ruler II-XII NML intact, Fully Oriented, Alert, Normal Mood/ Affect, Motor Strength 5/5. negative: EOM Palsy, Facial Droop, Sensory Deficit - Medical Decision Making 04/06/17 01:49 Pt treated and released <Real Lou - Last Filed: 04/06/17 01:50>
== END 2017-04-06 02:13 | disposition home or self-care (01) ==
LOC: JERFT 21:18 → JER 21:18
PROC: 3E0233Z Introduction of Anti-inflammatory into Muscle, Percutaneous Approach (ICD-10-PCS; principal; 2017-04-05)
DX: M17.0 Bilateral primary osteoarthritis of knee (principal); Z96.641 Presence of right artificial hip joint
CPT/HCPCS: 99281-25; 99282-25

== ENCOUNTER 2019-01-30 01:07 | Emergency (ER) | payer OTHER ==
[2019-01-30 01:50] VITALS: TEMP 98.6; BMI 26.4
--- NOTE | 2019-01-30 02:51 | PDOC ---
Attending Attestation - Resident Resident Name: Eriberto Reyson - ED Attending Attestation I have performed the following: I have examined & evaluated the patient, The case was reviewed & discussed with the resident, I agree w/resident's findings & plan - HPI HPI: 01/30/19 19:19 see resident hpi - Physicial Exam PE: 01/30/19 19:19 agree with resident exam - Medical Decision Making 01/30/19 19:19 38-year-old female with history of sarcoid and chest pain Troponins negative x2 EKG normal sinus rhythm CTA of the chest showed no pulmonary embolism Plan for DC home and outpatient primary follow-up 01/30/19 19:20
--- NOTE | 2019-01-30 03:19 | PDOC ---
History of Present Illness - General Chief Complaint: Chest Pain Stated Complaint: CHEST PAIN Time Seen by Provider: 01/30/19 02:48 - History of Present Illness Initial Comments: 01/30/19 03:14 38 yo F with h/o OA who p/w left sided chest pain. Patient reports acute onset of left sided chest pressure, radiating to epigastrium, while at rest. Pain onset at 11:00 PM 01/29/19. Pain now slightly improved. Also endorsed palpitations, SOB lasting for seconds and resolving spontaneously. + Lightheadedness, with absent LOC. Denies h/o similar pain. Patient denies [place], vision change, palpitations, cough, wheezing, orthopena, PND, leg swelling/pain , N/V, F,C, urinary complaints, hematuria, BPR, abdominal pain, diarrhea, constipation, lightheadedness, weakness, sensory changes. Denies tobacco, IVDA. Denies recent travel/ prolonged immobilization, trauma or surgery within past 2 months. Denies h/o PE/DVT. Patient f/w cardiology for palpitations, reports h/o unremarkable holter monitoring. Past History - Past Medical History Allergies/Adverse Reactions: Allergies Allergy/AdvReac Type Severity Reaction Status Date / Time No Known Drug Allergies Allergy Verified 01/30/19 01:50 Home Medications: Ambulatory Orders NK [No Known Home Medication] 04/06/17 Anemia: No Asthma: No Cancer: No Cardiac Disorders: No CVA: No COPD: No CHF: No Dementia: No Diabetes: No GI Disorders: No Disorders: No HTN: No Hypercholesterolemia: No Liver Disease: No Seizures: No Thyroid Disease: No - Surgical History Abdominal Surgery: No Appendectomy: No Cardiac Surgery: No Cholecystectomy: No Lung Surgery: No Neurologic Surgery: No Orthopedic Surgery: No - Reproductive History (#): 9 Para: 2 Ectopic : Yes (possibly at current) Therapeutic (s) & number: Yes (6) Spontaneous : 0 - Psycho Social/Smoking Cessation Hx Smoking Status: No Smoking History: Never smoked Have you smoked in the past 12 months: No Number of Cigarettes Smoked Daily: 0 Hx Alcohol Use: No Drug/Substance Use Hx: No Substance Use Type: None Hx Substance Use Treatment: No Review of Systems - Review of Systems Comments:: 01/30/19 03:18 GENERAL/CONSTITUTIONAL: No fever or chills. No weakness. HEAD, EYES, EARS, NOSE AND THROAT: No change in vision. No ear pain or discharge. No sore throat. CARDIOVASCULAR: + L sided chest pain + shortness of breath. RESPIRATORY: No cough, wheezing, or hemoptysis. GASTROINTESTINAL: No nausea, vomiting, diarrhea or constipation. GENITOURINARY: No dysuria, frequency, or change in urination. MUSCULOSKELETAL: No joint or muscle swelling or pain. No neck or back pain. SKIN: No rash NEUROLOGIC: No headache, vertigo, loss of consciousness, or change in strength/ sensation. ENDOCRINE: No increased thirst. No abnormal weight change HEMATOLOGIC/LYMPHATIC: No anemia, easy bleeding, or history of blood clots. ALLERGIC/IMMUNOLOGIC: No hives or skin allergy. *Physical Exam - Vital Signs Last Vital Signs Temp Pulse Resp BP Pulse Ox 98.6 F 82 18 123/75 100 01/30/19 01:43 01/30/19 01:43 01/30/19 01:43 01/30/19 01:43 01/30/19 01:43 - Physical Exam Comments: 01/30/19 03:19 GENERAL: Awake, alert, and fully oriented, in no acute distress HEAD: No signs of trauma, normocephalic, atraumatic EYES: PERRLA, EOMI, sclera anicteric, conjunctiva clear ENT: Auricles normal inspection, hearing grossly normal, nares patent, oropharynx clear without exudates. Moist mucosa NECK: Normal ROM, supple, no lymphadenopathy, JVD, or masses LUNGS: No distress, speaks full sentences, clear to auscultation bilaterally HEART: Regular rate and rhythm, normal S1 and S2, no murmurs, rubs or gallops, peripheral pulses normal and equal bilaterally. ABDOMEN: + Epigastric ttp. Soft, NDS, normoactive bowel sounds. No guarding, no rebound. No masses EXTREMITIES : Normal inspection, Normal range of motion, no edema. No clubbing or cyanosis NEUROLOGICAL: Cranial nerves II through XII grossly intact. Normal speech, normal gait, no focal sensorimotor deficits SKIN: Warm, Dry, normal turgor, no rashes or lesions noted ED Treatment Course - LABORATORY CBC & Chemistry Diagram: 01/30/19 03:35 01/30/19 03:35 - RADIOLOGY Radiology Studies Ordered: Category Date Time Status CXRPORT [CHEST X-RAY PORTABLE*] [RAD] Stat Radiology 01/30/19 02:49 Ordered 01/30/19 05:49 Patient Information: : 1980 Order Type: Preliminary Name: TWYLA HERRERA Sex: F Study Description: CT CTA CHEST Modality: CT Location: [facility] Referring Physician: RANCHO REEDER Comments: Juan Wyman MD wrote on Jan 30, 2019 at 05:39 AM: Referring Physician: RANCHO REEDER Patient Name: JAVIER WAKEFIELD THIS IS A PRELIMINARY REPORT FROM [facility] DATE OF SERVICE: 2019-01-30 04:25:34 IMAGES: [id number] EXAM: CHEST CTA HISTORY: Chest pain rule out pulmonary embolus COMPARISON: None. FINDINGS: Negative for pulmonary embolus. Negative for thoracic aortic aneurysm or dissection. No pulmonary infiltrates or pleural effusions. 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 Liver is heterogeneous in texture. This is nonspecific but can be associated with intrinsic liver disease; vascular congestion; or hepatic venoocclusive disease. CONFIDENTIALITY NOTICE: This information is intended only for the use of the recipient(s) named above. If you are not the intended recipient, or a person responsible for delivering it to the intended recipient, you are hereby notified that any disclosure, copying, distribution or use of any of the information contained in or attached to this transmission is STRICTLY PROHIBITED. If you have received this transmission in error, please immediately notify [facility] and destroy the original transmission and its attachments without saving them in any manner [address] [place] [address] [place] [address] Phone: [phone] [phone]) Fax: Email: [email or web address] Patient Information: : 1980 Order Type: Preliminary Name: TWYLA HERRERA Sex: F Study Description: CT CTA CHEST Modality: CT Location: [facility] Referring Physician: RANCHO REEDER One or more of the following dose reduction techniques were used: automated exposure control, adjustment of the mA and/or kV according to patient size, use of iterative reconstructive technique. THIS DOCUMENT HAS BEEN ELECTRONICALLY SIGNED Juan Wyman MD 01/30/2019 05:39 CHAZ Gonzalez. Please call [facility] [phone]) with questions. Juan Wyman MD Clinicians - Please contact [facility] with further questions at [phone]) Patients - Please contact your Ordering Provider with questions. Medical Decision Making - Medical Decision Making 01/30/19 03:21 38 yo F with h/o OA who p/w left sided chest pain. Vitals wnl, AF, A&Ox3. ACS/ SC r/o. Will assess for gastritis, pancreatitis, esophagitis. Will reassess. CTA r/o PE. Ed Course: EKG: NSR with absent BERT, STD. Nml interval duration and axis. Nml R wave progression. Absent Q waves. 01/30/19 03:43 Laboratory Tests 01/30/19 01/30/19 01/30/19 03:35 03:35 03:35 WBC 8.7 Hgb 11.9 Hct 36.5 D Plt Count 252 D Sodium 137 BUN 8.0 Creatinine 0.7 Troponin I < 0.02 Lipase 74 Serum , Qual 01/30/19 03:35 WBC Hgb Hct Plt Count Sodium BUN Creatinine Troponin I Lipase Serum , Qual Negative 01/30/19 05:49 CTAP: FINDINGS: Negative for pulmonary embolus. Negative for thoracic aortic aneurysm or dissection. No pulmonary infiltrates or pleural effusions. 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 Liver is heterogeneous in texture. This is nonspecific but can be associated with intrinsic liver disease; vascular congestion; or hepatic venoocclusive disease. 01/30/19 06:22 Repeat trop Neg Patient stable for d/c with return precautions Discharge - Discharge Information Problems reviewed: Yes Clinical Impression/Diagnosis: Chest pain Qualifiers: Chest pain type: other chest pain Qualified Code(s): R07.89 - Other chest pain Condition: Fair Disposition: HOME - Admission No - Follow up/Referral Referrals: Dave Hager MD [Primary Care Provider] - - Patient Discharge Instructions Patient Printed Discharge Instructions: DI for Atypical Chest Pain Additional Instructions: Please return to the emergency department with any new or worsening symptoms or concerns. Please follow up with your primary care physician within 72 hours. - Post Discharge Activity
[2019-01-30] MEDS ORDERED: KETOROLAC TROMETHAMINE 15 MG/ML VIAL IVPUSH ONE (03:40)
[2019-01-30 03:44] LABS: BASO % 0.9 % (0-2.0); EOS % 1.4 % (0-4.5); HEMATOCRIT 36.5 % (32.4-45.2); HEMOGLOBIN 11.9 GM/dL (10.7-15.3); LYMPH % 14.7 % (8-40); MCH 30.7 pg (25.7-33.7); MCHC 32.6 g/dl (32.0-36.0); MEAN CELL VOLUME 94.2 fl (80-96); MEAN PLT VOLUME 9.1 fl (7.5-11.1); MONO % 4.2 % (3.8-10.2); NEUT % 78.8 % (42.8-82.8); PLATELET COUNT 252 K/MM3 (134-434); RBC 3.88 M/mm3 (3.60-5.2); RDW 14.8 % (11.6-15.6); WHITE BLOOD COUNT 8.7 K/mm3 (4.0-10.0)
[2019-01-30] MEDS ORDERED: KETOROLAC TROMETHAMINE 15 MG/ML VIAL ONE (03:59)
[2019-01-30 04:10] LABS: ALBUMIN 3.2 g/dl (3.4-5.0); BILIRUBIN,TOTAL 0.8 mg/dL (0.2-1); CALCIUM 8.9 mg/dL (8.5-10.1); CREATININE 0.7 mg/dL (0.55-1.3); POTASSIUM 5.2 mmol/L (3.5-5.1); TOT PROT 6.6 g/dl (6.4-8.2)
[2019-01-30 06:34] VITALS: BP 117/81; PULSE 76
--- NOTE | 2019-01-30 12:10 | EKG ---
Test Reason : Blood Pressure : / mmHG Vent. Rate : 076 BPM Atrial Rate : 076 BPM P-R Int : 196 ms QRS Dur : 080 ms QT Int : 380 ms P-R-T Axes : 072 041 050 degrees QTc Int : 427 ms NORMAL SINUS RHYTHM NORMAL ECG WHEN COMPARED WITH ECG OF 23-NOV-2016 18:19, NO SIGNIFICANT CHANGE WAS FOUND Confirmed by MARTÍNEZ RICHARDSON MD ([id number]) on 01/30/2019 12:10:07 PM Referred By: Confirmed By:MARTÍNEZ RICHARDSON MD
== END 2019-01-30 06:30 | disposition home or self-care (01) ==
LOC: JER 01:07
PROC: 3E0333Z Introduction of Anti-inflammatory into Peripheral Vein, Percutaneous Approach (ICD-10-PCS; principal; 2019-01-30)
DX: R07.89 Other chest pain (principal); M19.90 Unspecified osteoarthritis, unspecified site; R10.13 Epigastric pain
CPT/HCPCS: 36415; 71045-TC-FY; 71275-TC; 80053; 82550; 83690; 84484; 84703; 85025; 93005; 93010; 99283-25

== ENCOUNTER 2020-08-27 18:09 | Emergency (ER) | payer BC, OTHER ==
[2020-08-27 18:15] VITALS: BP 145/79; PULSE 91; TEMP 98.3; BMI 30.7
[2020-08-27] MEDS ORDERED: KETOROLAC TROMETHAMINE 30 MG/1 ML VIAL IM ONE (18:55)
[2020-08-27] MEDS ORDERED: KETOROLAC TROMETHAMINE 30 MG/1 ML VIAL ONE (18:56)
== END 2020-08-27 19:00 | disposition home or self-care (01) ==
LOC: JERFT 18:09
PROC: 3E0233Z Introduction of Anti-inflammatory into Muscle, Percutaneous Approach (ICD-10-PCS; principal; 2020-08-27)
DX: M26.622 Arthralgia of left temporomandibular joint (principal)
CPT/HCPCS: 99284-25

== ENCOUNTER 2021-01-12 20:39 | Emergency (ER) | payer BC ==
[2021-01-12 20:50] VITALS: BP 118/76; PULSE 82; TEMP 98; BMI 29.9
[2021-01-12] MEDS ORDERED: KETOROLAC TROMETHAMINE 30 MG/1 ML VIAL IM ONE (22:16)
[2021-01-12] MEDS ORDERED: KETOROLAC TROMETHAMINE 30 MG/1 ML VIAL ONE (22:23)
== END 2021-01-12 23:40 | disposition home or self-care (01) ==
LOC: JER 20:39
PROC: 3E0233Z Introduction of Anti-inflammatory into Muscle, Percutaneous Approach (ICD-10-PCS; principal; 2021-01-12)
DX: M25.561 Pain in right knee (principal)
CPT/HCPCS: 99283-25

== ENCOUNTER 2022-06-07 14:37 | Emergency (ER) | payer BC, OTHER ==
[2022-06-07 15:03] VITALS: BP 108/72; PULSE 105; RESP 18; TEMP 98.6; BMI 31.0
[2022-06-07] MEDS ORDERED: diazePAM 5 MG TABLET PO ONE (17:14)
[2022-06-07] MEDS ORDERED: DEXAMETHASONE 4 MG TABLET (FP) PO ONE (17:14)
[2022-06-07] MEDS ORDERED: LIDOCAINE 5% TOPICAL PATCH TP ONE (17:15)
[2022-06-07] MEDS ORDERED: diazePAM 5 MG TABLET ONE (17:22)
[2022-06-07] MEDS ORDERED: LIDOCAINE 5% TOPICAL PATCH ONE (17:22)
[2022-06-07 17:49] LABS: URINE APPEARANCE CLEAR; URINE BILIRUBIN NEGATIVE (NEGATIVE); URINE COLOR YELLOW; URINE GLUCOSE (UA) NEGATIVE (NEGATIVE); URINE KETONE NEGATIVE (NEGATIVE); URINE LEUK ESTERASE NEGATIVE (NEGATIVE); URINE NITRITE NEGATIVE (NEGATIVE); URINE PROTEIN NEGATIVE (NEGATIVE); URINE UROBILINOGEN 0.2 mg/dL (0.2-1.0)
[2022-06-07 17:50] LABS: HCG,QUALITATIVE URINE Negative
[2022-06-07] MEDS ORDERED: KETOROLAC TROMETHAMINE 30 MG/1 ML VIAL IM ONE (18:16)
[2022-06-07] MEDS ORDERED: DEXAMETHASONE SOD PHOSPHATE 10 MG/1 ML VIAL ONE (18:32)
[2022-06-07] MEDS ORDERED: KETOROLAC TROMETHAMINE 30 MG/1 ML VIAL ONE (18:33)
[2022-06-07] MEDS ORDERED: LIDOCAINE PATCH REMOVAL MC SCH (22:00)
== END 2022-06-07 19:36 | disposition home or self-care (01) ==
LOC: JER 14:37 → JERFT 14:37
DX: M54.50 Low back pain, unspecified (principal)
CPT/HCPCS: 72170-TC-FY; 73502-TC-LT-FY; 81003; 84703; 87086; 99285-25